=== PATIENT | female | born 1985 ===

== ENCOUNTER 2017-03-26 06:16 | Inpatient (IN) | payer BC ==
[2017-03-23 10:04] VITALS: BMI 25.4
[2017-03-26] MEDS ORDERED: Lactated Ringer's 1,000 ML IV ONE ×3 (07:17→09:10)
[2017-03-26] MEDS ORDERED: Propofol 10 mg/ml Inj (20 ML) ONE (07:24)
[2017-03-26] MEDS ORDERED: Rocuronium 10 mg/ml (5 ml) ONE (07:25)
[2017-03-26] MEDS ORDERED: Midazolam 2 MG/2 ML VIAL ONE (07:25)
[2017-03-26] MEDS ORDERED: ePHEDrine 50 mg/ml Inj ONE (07:25)
[2017-03-26] MEDS ORDERED: Succinylcholine 200 mg/10 ml Inj IV ONE (07:26)
[2017-03-26] MEDS ORDERED: Lidocaine 4% (Laryng-O-Jet) Kit MM ONE (07:26)
[2017-03-26] MEDS ORDERED: ceFAZolin IV 1 gm in Dextrose 1 GM/50 ML BAG IVPB ONE (07:30)
--- NOTE | 2017-03-26 08:07 | CP.PCM.HP ---
History of Present Illness - History of Present Illness History of Present Illness: Pt presents to [facility] for management of symptomatic fibroid uterus, pelvic pressure pain and bleeding Present on Admission - Present on Admission Any Indicators Present on Admission: No Past Patient History - Past Medical History & Family History Past Medical History?: Yes - Past Social History Smoking Status: Never Smoked - CARDIAC Hx Cardiac Disorders: No - PULMONARY Hx Respiratory Disorders: No - NEUROLOGICAL Hx Neurological Disorder: Yes Hx Seizures: (x2 EPISODES FEB 2016) - HEENT Hx HEENT Problems: No - RENAL Hx Chronic Kidney Disease: No - ENDOCRINE/METABOLIC Hx Endocrine Disorders: No - HEMATOLOGICAL/ONCOLOGICAL Hx Blood Disorders: No - INTEGUMENTARY Hx Dermatological Problems: No - MUSCULOSKELETAL/RHEUMATOLOGICAL Hx Musculoskeletal Disorders: No - GASTROINTESTINAL Hx Gastrointestinal Disorders: No - GENITOURINARY/GYNECOLOGICAL Hx Genitourinary Disorders: No - PSYCHIATRIC Hx Psychophysiologic Disorder: No - SURGICAL HISTORY Hx Surgeries: No - ANESTHESIA Hx Anesthesia: No Hx Anesthesia Reactions: No Hx Malignant Hyperthermia: No Has any member of the family had a problem w/ anesthesia?: No Meds Allergies/Adverse Reactions: Allergies Allergy/AdvReac Type Severity Reaction Status Date / Time No Known Allergies Allergy Verified 03/23/17 09:33 Physical Exam - Head Exam Head Exam: ATRAUMATIC - Respiratory Exam Respiratory Exam: NORMAL BREATHING PATTERN - Cardiovascular Exam Cardiovascular Exam: REGULAR RHYTHM - GI/Abdominal Exam GI & Abdominal Exam: Normal Bowel Sounds - Exam Bimanual exam: Uterine Enlargement Additional comments: Irregular uterine contour - Extremities Exam Extremities exam: Positive for: normal inspection - Back Exam Back exam: NORMAL INSPECTION Results - Vital Signs Recent Vital Signs: Last Vital Signs Temp 98.5 F 03/26/17 06:58 Pulse 83 03/26/17 06:58 Resp 18 03/26/17 06:58 BP 121/75 03/26/17 06:58 Pulse Ox 99 03/26/17 06:58 Assessment & Plan - Assessment and Plan (Free Text) Assessment: symptomatic fibroid uterus discussed r/b/a to surgery Pt agrees to plan of care
[2017-03-26] MEDS ORDERED: Neostigmine Methylsulfate 3mg/3ml Syringe IV ONE (08:16)
[2017-03-26] MEDS ORDERED: Neostigmine Methylsulfate 2 MG/2 ML ML IV ONE (08:16)
[2017-03-26] MEDS ORDERED: Dexamethasone 4 mg/1 ml ONE (09:09)
[2017-03-26] MEDS ORDERED: Vasopressin 20 Units/ml Inj ONE (09:19)
[2017-03-26] MEDS ORDERED: HYDROmorphone 0.5 mg/0.5 ml ISec IVP PRN (10:29)
[2017-03-26] MEDS ORDERED: Naloxone 0.4 mg/ml Inj (Adult) IVP PRN (10:32)
[2017-03-26] MEDS ORDERED: Oxycodone/Acetaminophen 5/325 mg Tab PO PRN (11:12)
[2017-03-26] MEDS: Lactated Ringer's 1,000 ML IV SCH (21:51)
[2017-03-27] MEDS: Lactated Ringer's 1,000 ML IV SCH (05:57)
[2017-03-27 06:47] LABS: HEMATOCRIT 35.4 % (34.0-47.0); MEAN CELL VOLUME 86.1 fl (81.0-99.0); MEAN CORPUSCULAR HGB CONC 33.8 g/dL (33.0-37.0); RED CELL DISTRIBUTION WIDTH 12.7 % (11.5-14.5); WHITE BLOOD COUNT 13.8 K/uL (4.8-10.8)
[2017-03-27] MEDS ORDERED: Simethicone 80 mg Chewtab PO PRN (13:24)
--- NOTE | 2017-03-27 13:30 | CP.PCM.PN ---
Subjective - Date & Time of Evaluation Date of Evaluation: 03/27/17 Time of Evaluation: 13:28 - Subjective Subjective: patient doing well ambulating tolerating diet passing flatus voiding w/o difficulty Objective - Vital Signs/Intake and Output Vital Signs (last 24 hours): Temp Pulse Resp BP Pulse Ox 100.2 F H 87 18 105/55 L 98 03/27/17 12:47 03/27/17 12:47 03/27/17 12:47 03/27/17 08:35 03/27/17 12:47 Intake and Output: 03/27/17 03/27/17 06:59 18:59 Intake Total 2000 Output Total 1500 Balance 500 - Medications Medications: Current Medications Lactated Ringer's (Lactated Ringer's) 1,000 mls @ 125 mls/hr IV .Q8H [facility] Last Admin: 03/27/17 05:57 Dose: 125 mls/hr Ibuprofen (Motrin Tab) 600 mg PO Q8 PRN PRN Reason: Pain, moderate (4-7) Levetiracetam (Keppra) 500 mg PO Q12@0800,2000 [facility] Last Admin: 03/27/17 08:14 Dose: 500 mg Naloxone HCl (Narcan) 0.1 mg IVP Q2M PRN PRN Reason: Opiate reversal Oxycodone/Acetaminophen (Percocet 5/325 Mg Tab) 1 tab PO Q4 PRN PRN Reason: Pain, Mild (1-3) Stop: 03/29/17 11:13 Last Admin: 03/27/17 12:30 Dose: 1 tab Simethicone (Mylicon Chew Tab) 80 mg PO Q4 PRN PRN Reason: Flatulence - Labs Labs: 03/27/17 05:30 - Constitutional Appears: Well - Head Exam Head Exam: ATRAUMATIC - Respiratory Exam Respiratory Exam: Clear to Ausculation Bilateral - GI/Abdominal Exam Additional comments: incicion c/d/i Assessment and Plan - Assessment and Plan (Free Text) Plan: POD 1 doing well desires to go home motrin perocet and colace provided f/u with Chilo on 04/13/17
[2017-03-27 16:51] VITALS: BP 104/56; PULSE 85; RESP 20; TEMP 99.8; O2SAT 99
--- NOTE | 2017-04-01 08:52 | OP ---
PROCEDURE DATE: 03/26/2017 PREOPERATIVE DIAGNOSIS: Symptomatic fibroid uterus. POSTOPERATIVE DIAGNOSIS: Symptomatic fibroid uterus. OPERATION PERFORMED: A myomectomy, laparotomy. SURGEON: Tru Woo MD. PLANT AND MACHINERY VALUER: Rashi Nails MD, who was instrumental in the surgery, helped to create exposure, obtain hemostasis. he was helpful in extracting the fibroids and closure of the patient. The procedure would not have been possible without his assistance. TYPE OF ANESTHESIA: General. ANESTHESIA ADMINISTERED BY: Olive Morales MD. OPERATIVE FINDINGS: Fibroid uterus; 2 prominent myomas, one located fundally and the other one located left laterally and the smaller one located anteriorly. IV FLUID INTAKE: The patient received approximately [address] LR intraoperatively. ESTIMATED BLOOD LOSS: 75 mL. URINE OUTPUT: Leone catheter put out approximately 400 mL of clear urine. DESCRIPTION OF PROCEDURE: After informed consent was obtained, the patient was then taken to the operating room where she was placed in the supine position, given general anesthesia. Prepped and draped in the usual sterile fashion. A Pfannenstiel skin incision was then made with a scalpel, carried down to the underlying layer of fascia. The fascia was nicked in the midline. The fascial incision was then extended laterally with the curved Knapp scissors. Superior aspect of the fascial incision was then grasped with Sarah clamps, elevated up and the rectus muscles were dissected off using both sharp and blunt dissection. Attention was then turned to the inferior aspect of the fascial incision, which in a similar fashion was grasped with Sarah clamps, elevated up and the rectus muscles were dissected off using both sharp and blunt dissection. The rectus muscles were then in the midline, the peritoneum identified, entered sharply with the Metzenbaum scissors. The peritoneal incision was then extended superiorly and inferiorly with good visualization of the bladder. The uterus was then identified and elevated up to the incision with the findings noted above. There was a prominent fundal myoma. It was injected with Pitressin. The serosa was scored and the fibroid was enucleated using a series of both sharp and blunt dissection. The uterine defect was then repaired with 2-0 Vicryl in a running locked fashion. This was performed in layers. The myometrium was then closed using 2-0 Vicryl in a running locked fashion. The serosa was closed with 2-0 chromic. Attention was then turned to the left lateral myoma, which in a similar fashion was scored around the base and enucleated using a series of both sharp and blunt dissection. The uterine defect was then repaired with 2-0 Vicryl in a running locked fashion. The myometrium was closed with 2-0 Vicryl in a running locked fashion and the serosa was closed with 2-0 chromic in a running locked fashion. Attention was then turned to the small anterior myoma, which gasped with the Allis clamps and incised using the cautery. The Interceed was then applied. The abdomen was then irrigated. Irrigant was removed with a suction device. The uterus was returned to the abdomen and Interceed was applied to avoid adhesions. Hemostasis was noted. The peritoneum was then closed with 2-0 Vicryl in a running fashion. The fascia was closed with 0 Vicryl in a running fashion. The skin was closed with 4-0 on a Vin needle. All sponge, lap, needle and instrument counts were correct x2. The patient was taken to the recovery room in awake and stable condition. Tru Woo MD
== END 2017-03-27 19:15 | disposition home or self-care (01) | DRG 743 ==
LOC: H.OPSURG 06:16 → H.PEDS 11:12
PROVIDERS: ADMIT Obstetrics & Gynecology Gynecology; ATTEND Obstetrics & Gynecology Gynecology
PROC: 0UB90ZZ Excision of Uterus, Open Approach (ICD-10-PCS; principal; 2017-03-26 07:45)
DX: D25.9 Leiomyoma of uterus, unspecified (principal); R56.9 Unspecified convulsions